=== PATIENT | male | born 1985 | race Hispanic/Latino ===

== ENCOUNTER 2020-02-04 04:01 | Emergency (ER) | payer MEDICAID ==
[2020-02-04] MEDS ORDERED: SODIUM CHLORIDE 0.9% 1000ML 1,000 ML IVS ONE (05:31)
[2020-02-04] MEDS ORDERED: cefTRIAXone SODIUM 1 GM in SODIUM CHL 0.9% 50ML MIN-BAG+ 50 ML IVPB ONE (05:31)
[2020-02-04] MEDS ORDERED: CIPROFLOXACIN 500 MG TAB PO ONE (05:32)
--- NOTE | 2020-02-04 05:35 | RAD ---
EXAM DESCRIPTION: X-ray single view chest. CLINICAL HISTORY: 34 years Male, diaphoresis COMPARISON: None. TECHNIQUE: Single portable x-ray view of the chest performed on 02/04/2020 at 5:12 AM FINDINGS: The lungs are well expanded and are clear. There is no evidence of a pneumothorax. The cardiac silhouette is normal in size and configuration. The mediastinal contours are normal. No acute osseous abnormality is identified. There are remote postsurgical changes of the cervical spine and upper thoracic spine. No focal soft tissue abnormalities are seen. Lines and tubes: None. IMPRESSION: No definite acute intrathoracic disease. Electronically signed by: Yi Quan DO 02/04/2020 5:34 AM CDT
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
--- NOTE | 2020-02-04 05:39 | RAD ---
ABDOMEN, SINGLE VIEW, XR. CLINICAL HISTORY: diaphoresis COMPARISON: [None.] TECHNIQUE: AP upright abdomen. FINDINGS: Large amount of fecal loading throughout the colon. There is minimal small bowel air. There is no abnormal bowel dilatation. No free air. No pathologic calcification. Unremarkable bones and soft tissues. Lung bases are clear. Heart is normal in size. IMPRESSION: Constipation without obstruction. Electronically signed by: Karen Jaramillo DO 02/04/2020 5:38 AM CDT
[2020-02-04 06:59] VITALS: BP 102/74; TEMP 97.2; O2SAT 99
== END 2020-02-04 07:20 ==
LOC: ER 04:01
DX: T83.511A Infection and inflammatory reaction due to indwelling urethral catheter, initial encounter (principal); T83.091A Other mechanical complication of indwelling urethral catheter, initial encounter; L89.152 Pressure ulcer of sacral region, stage 2; L89.603 Pressure ulcer of unspecified heel, stage 3; L89.892 Pressure ulcer of other site, stage 2; G82.50 Quadriplegia, unspecified; R00.0 Tachycardia, unspecified; E87.2 Acidosis; E86.0 Dehydration; K59.01 Slow transit constipation; Y92.9 Unspecified place or not applicable; R33.9 Retention of urine, unspecified
CPT/HCPCS: 71045; 74019; 80053; 81001; 82150; 82550; 82553; 83605; 83690; 83735; 84484; 85025; 85610; 85730; 87040; 87086; 93005; J0696; J7030; J7050